=== PATIENT | male | born 1965 | race American Indian/Alaskan Native ===

== ENCOUNTER 2025-06-27 09:42 | Emergency (ER) | payer BC, SELFPAY ==
--- NOTE | 2025-06-27 | XR_ITS ---
Examination: MRI brain without intravenous contrast. Date and time of exam: June 27, 2025 1141 hrs. Indications: Onset dizziness episodes beginning 4 days ago. Technique: Multiple axial and sagittal images of the brain obtained. Siemens high-resolution 1.5 Nicole short bore scanners utilized. Sagittal sections, T1-weighted, TR 500, TE 14, are performed. Axial sections proton-density and T2-weighted have been obtained. Inversion recovery axial images, TR 9, 260, TE 111, TI 2500. Diffusion weighted images, axial sections, TR 4800, TE 128, B value 1000 Axial sections, ADC map, TR 4800, TE 128 Findings: Enlargement of the sella turcica is not present. The optic chiasm and infundibular are not remarkable. Prepontine and interpeduncular cisterns are not enlarged. There is no localized enlargement of the medulla or dania. Fourth ventricle and cerebellar tonsils appear normal in position. No subacute area of hemorrhage density is seen. Mass in the cerebellopontine angle region is not evident. Globes symmetrical. Orbital musculature including medial lateral rectus muscles do not exhibit abnormality. Diffusion-weighted images demonstrate no focus of restricted diffusion. Increased white matter signal evident, punctate foci signal right parietal white matter, FLAIR image 14, frontal white matter FLAIR image 17 Mass effect upon the ventricular system is not identified. Impression: Negative for acute hemorrhage mass effect or midline shift No acute infarct Scattered punctate foci increased signal in the white matter, consider demyelinating disease
--- NOTE | 2025-06-27 09:46 | EKG_ITS ---
[facility] Test Date: 2025-06-27 Pat Name: SOPHIE LEAHY Department: Room: - Gender: Male Endbander: : 1965 Requested By: Vazquez Flores (BONNY) Order Number: [id number] Reading MD: Vazquez Flores (HOME ORGANIZER) Measurements Intervals [place] Rate: 50 P: 48 NM: 207 QRS: 34 QRSD: 106 T: 70 QT: 411 QTc: 378 Interpretive Statements SINUS BRADYCARDIA LATERAL MYOCARDIAL INFARCTION , PROBABLY RECENT [40+ ms Q WAVE AND/OR ST/T ABNORMALITY IN I/aVL/V5/V6] ACUTE DC Compared to ECG 04/08/2020 10:42:09 No significant changes /store/S0/[id number]/ecg/[id number].pdf
--- NOTE | 2025-06-27 09:59 | XR_ITS ---
Examination: Images single view Technique : AP portable upright chest single view Date and time: June 27, 2025, 10:10 AM INDICATIONS: Chest pain shortness of breath today FINDINGS: Normal heart size. Lungs are clear. The osseous structures are intact IMPRESSION: No active disease
--- NOTE | 2025-06-27 09:59 | PD.EDRME ---
Rapid Medical Screening Exam RME Arrival date/time: 06/27/25 09:42 59-year-old male presents Emergency Department today for complaints of dizziness ongoing since Tuesday Chief Complaint: Dizziness
[2025-06-27 10:07] VITALS: BP 178/84; PULSE 53; RESP 15; TEMP 36.9; O2SAT 98
[2025-06-27 10:12] VITALS: PULSE 58
[2025-06-27 10:15] VITALS: BMI 29.8
[2025-06-27 10:28] VITALS: PULSE 58
[2025-06-27 10:53] LABS: Collection Type, Urine Clean Catch; Squamous Epithelial Cell,Urine 0 /hpf (0-5)
[2025-06-27 10:57] LABS: Bilirubin,Urine Negative (Negative); Blood,Urine Negative (Negative); Clarity,Urine Clear (Clear/Hazy); Color,Urine Colorless (Lt Yel-Yel); Glucose, Urine Negative (Negative); Ketones,Urine Negative (Negative); Leukocyte Esterase,Urine Negative (Negative); Nitrite,Urine Negative (Negative); PH,Urine 6.0 (5.0-7.0); Protein,Urine Negative (Neg - Trace); RBC,Urine 1 /hpf (0-3); Specific Gravity,Urine 1.005 (1.001-1.035); Urobilinogen,Urine Negative mg/dL (0.0-1.0); WBC,Urine 1 /hpf (0-5)
[2025-06-27 10:59] LABS: Basophils # (Auto) 0.0 Thou/mm3 (0.0-0.2); Basophils % (Auto) 0 % (0-2.5); Eosinophils # (Auto) 0.0 Thou/mm3 (0.0-0.5); Eosinophils % (Auto) 1 % (0-10); Hematocrit 47.1 % (41.0-53.0); Hemoglobin 16.6 g/dL (13.5-16.0); Immature Granulocytes Auto 0.02 Thou/mm3 (0.00-0.00); Lymphocytes # (Auto) 1.2 Thou/mm3 (1.0-4.8); Lymphocytes % (Auto) 17 % (10-50); Mean Corpuscular HGB Conc 35.2 g/dl (31.0-37.0); Mean Corpuscular Hemoglobin 30.0 pg (25.0-35.0); Mean Corpuscular Volume 85 fL (80-100); Monocytes # (Auto) 0.3 Thou/mm3 (0.0-0.8); Monocytes % (Auto) 5 % (0-12); Neutrophils # (Auto) 5.4 Thou/mm3 (1.8-7.7); Neutrophils % (Auto) 78 % (37-80); Nucleated Red Blood Cell # 0.00 Thou/mm3 (0.00-0.00); Nucleated Red Blood Cell % 0 /100 WBC (0); Platelet Count 244 Thou/mm3 (140-440); RDW Standard Deviation 38.8 fL (35.1-43.9); Red Blood Count 5.53 Miln/mm3 (4.50-5.90); White Blood Count 7.0 Thou/mm3 (3.8-10.6)
[2025-06-27 11:12] LABS: INR 1.0 (0.9-1.3); Partial Thromboplastin Time 25.9 Seconds (22.0-36.0); Prothrombin Time 11.1 Seconds (9.0-12.2)
[2025-06-27 11:15] LABS: B-Type Natriuretic Peptide 23 pg/mL (0-100)
[2025-06-27] MEDS: SODIUM CHLORIDE 0.9% 1000 ML 1,000 ML 999 ML IV (11:15)
[2025-06-27 11:16] LABS: Alanine Aminotransferase 28 U/L (10-49); Albumin, Serum 4.8 gm/dL (3.5-5.0); Albumin/Globulin Ratio 1.8 (1.2-2.2); Alkaline Phosphatase 57 U/L (46-116); Anion Gap 8 (7-16); Aspartate Amino Transferase 33 U/L (0-34); BUN/Creatinine Ratio 9 Ratio (12-20); Bilirubin,Total 0.8 mg/dL (0.3-1.2); Blood Urea Nitrogen 10 mg/dL (9-23); Calcium 10.4 mg/dL (8.3-10.6); Calcium (Corrected) 10.4 mg/dL (8.5-10.1); Carbon Dioxide 27.6 mMol/L (20.0-31.0); Chloride 105 mMol/L (98-107); Creatinine (Component) 1.1 mg/dL (0.6-1.3); Estimated Creatinine Clearance 74.4 mL/min (>60); Globulin 2.6 gm/dL (2.3-3.5); Glucose 88 mg/dL (74-106); Magnesium 2.0 mg/dL (1.6-2.6); Osmolality,Calculated 279 (275-295); Potassium 4.0 mMol/L (3.4-5.1); Sodium 141 mMol/L (136-145); Total Protein 7.4 gm/dL (5.7-8.2); Troponin I < 0.020 ng/mL (0.0-0.045); eGFR > 60 See Note
--- NOTE | 2025-06-27 12:15 | PD.EDDIZZY ---
ED Dizzyness RME/HPI General Chief Complaint: Dizziness Stated Complaint: Dizziness since Tuesday Time Seen by Provider: 06/27/25 10:14 Arrival date/time: 06/27/25 09:42 Limitations: no limitations RME / HPI RME / HPI Narrative: 06/27/25 09:42 59-year-old male presents Emergency Department today for complaints of dizziness ongoing since Tuesday complaint: dizziness Onset (ago): day(s) Timing: sudden onset Description: sense of movement History of similar episodes: Yes (Patient had dizziness similar to this in 2016) Severity: moderate Relieving factors: medication Exacerbating factors: position Associated symptoms: denies other symptoms Related Data Home Medications ?Medication ?Instructions ?Recorded ?Confirmed atenolol 50 mg tablet 50 mg PO QDAY 04/08/20 06/27/25 lisinopril 10 mg tablet 10 mg PO QDAY 06/27/25 06/27/25 meclizine 50 mg tablet (Antivert) 25 mg PO .Q12 06/27/25 06/27/25 tamsulosin 0.4 mg capsule (Flomax) 0.4 mg PO QDAY 06/27/25 06/27/25 Allergies Allergy/AdvReac Type Severity Reaction Status Date / Time No Known Allergies Allergy Verified 06/27/25 09:46 Review of Systems Review of Systems Systems Reviewed: All systems reviewed, normal except as documented Constitutional Constitutional: Reports system reviewed and no additional complaints, except as documented ENT Ears, Nose, Mouth, and Throat: Reports vertigo Neurologic Neurologic: Reports vertigo Past Medical History Past Medical History NEUROLOGIC: Negative Neurological Disorders or Seizures CARDIAC: Positive Cardiac Disorders and Hypertension (TAKES MED); Negative Congestive Heart Failure, Edema or Cellulitis RESPIRATORY: Negative Respiratory Disorders, Chronic Obstructive Pulmonary Disease (COPD), Pneumonia, Tuberculosis or Sleep Apnea GASTROINTESTINAL: Positive Gastrointestinal Disorders and Gastroesophageal Reflux Disease; Negative Hepatitis GENITOURINARY: Negative Genitourinary Disorders or Renal Disease MUSCULOSKELETAL: Negative Musculoskeletal Disorders ENDOCRINE: Negative Endocrine Disorders, Diabetes Mellitus Type 1 or Diabetes Mellitus Type 2 HEMATOLOGIC: Negative Blood Disorders OTHER HISTORY: Positive Falls (12/20 FELL LANDED ON SHOULDER FOR THIS PROC); Negative Hospitalization, Autoimmune Disease, Shingles, Blood Transfusions, Anesthesia Reactions, Chemotherapy, Radiation Therapy, MRSA, Chicken Pox, Measles, Mumps or Cancer Family History FAMILY HISTORY: Positive Family Cardiac Disorders (MOTHER (HTN)) and Family Surgery (FATHER,MOTHER); Negative Family Psychiatric Problems, Family Respiratory Disorders, Family Gastrointestinal Problems, Family Cancer or Family Anesthesia Reaction Surgical History SURGICAL: Negative Pacemaker Social History SMOKING STATUS: Never smoker ED Exam General Limitations: Present no limitations General appearance: Present alert and in no apparent distress Head Head exam: Present atraumatic Eye Eye exam: Present normal appearance, PERRL and EOMI ENT ENT exam: Present normal exam, normal oropharynx and mucous membranes moist Neck Neck exam: Present normal inspection, full ROM and trachea midline Chest Chest inspection: Present normal inspection and symmetric chest wall rise Respiratory Respiratory exam: Present normal lung sounds bilaterally Cardiovascular Cardiovascular exam: Present regular rate, normal rhythm and normal heart sounds Abdominal Exam Abdominal exam: Present soft and normal bowel sounds Extremities Exam Extremities exam: Present normal inspection and full ROM Back Exam Back exam: Present normal inspection and full ROM Neurological Exam Neurological exam: Present alert, oriented X3 and CN II-XII intact Psychiatric Psychiatric exam: Present normal affect and normal mood Skin Skin exam: Present warm, dry, intact and normal color Course Quality Measures none Orders Category Date Time Status Tree Specialist NOW Care 06/27/25 09:59 Completed Tree Specialist NOW Care 06/27/25 10:22 Completed Continuous Pulse Oximetry NOW Care 06/27/25 10:22 Completed EKG (ED ONLY) *Do not use* NOW Care 06/27/25 09:46 Completed Insert IV NOW Care 06/27/25 10:22 Completed MRI Screening NOW Care 06/27/25 10:22 Completed MRI Screening NOW Care 06/27/25 10:23 Completed EKG (ED Only) Stat Exams 06/27/25 09:46 Draft MR head/brain wo con Stat Exams 06/27/25 Completed XR chest 1V portable Stat Exams 06/27/25 09:59 Completed B-Type Natriuretic Peptide Stat Lab 06/27/25 10:43 Completed CBC Stat Lab 06/27/25 10:43 Completed Comprehensive Metabolic Panel Stat Lab 06/27/25 10:43 Completed Magnesium Stat Lab 06/27/25 10:43 Completed Partial Thromboplastin Time Stat Lab 06/27/25 10:43 Completed Prothrombin Time with INR Stat Lab 06/27/25 10:43 Completed Troponin I Stat Lab 06/27/25 10:43 Completed Urinalysis Stat Lab 06/27/25 10:45 Completed Sodium Chloride 0.9% 1000 ml [Ns] 1,000 ml Med 06/27/25 10:22 Discontinued IV 999 mls/hr Vital Signs Vital signs: Vital Signs Temperature 98.4 F 06/27/25 10:07 Pulse Rate 53 L 06/27/25 10:07 Respiratory Rate 15 06/27/25 10:07 Blood Pressure 178/84 H 06/27/25 10:07 Pulse Oximetry (%) 98 06/27/25 10:07 Oxygen Delivery Method Room Air 06/27/25 10:07 Pulse ox is 98% on room air which is adequate. Dizziness MDM Narrative MDM Narrative:: Patient is a 59-year-old male whose had dizziness for 3 days and who has been treated with meclizine with some improvement. He has cerumen in his right external canal greater than the left external canal. He has no nystagmus. His neuroexam is normal. Blood pressure initially was 178/84. Patient data External records reviewed:: [facility] previous records (I reviewed H&P on 07/28/2020 ) Clinical information provided by:: patient Social determinants that could affect healthcare access:: none Patient has the following chronic illnesses:: Hypertension, BPH How is presenting disease/condition affected by chronic disease/condition?: exacerbated by Evaluation data The following diagnostics were reviewed and interpreted by me:: lab results, radiology exam(s) and EKG tracing(s) (06/27/2025. Sinus bradycardia, rate 53, no acute STEMI ) Lab and/or radiology exams considered but not ordered:: None Interpretation Summary: Ordering Physician: Rickie Reich MD Date of Service: 06/27/25 Procedure(s): MR head/brain wo [facility] Accession Number(s): [id number] cc: Rickie Reich MD; Raheel Clemente MD; Gricel Dinh NP~ Examination: MRI brain without intravenous contrast. Date and time of exam: June 27, 2025 1141 hrs. Indications: Onset dizziness episodes beginning 4 days ago. Technique: Multiple axial and sagittal images of the brain obtained. Siemens high-resolution 1.5 Nicole short bore scanners utilized. Sagittal sections, T1-weighted, TR 500, TE 14, are performed. Axial sections proton-density and T2-weighted have been obtained. Inversion recovery axial images, TR 9, 260, TE 111, TI 2500. Diffusion weighted images, axial sections, TR 4800, TE 128, B value 1000 Axial sections, ADC map, TR 4800, TE 128 Findings: Enlargement of the sella turcica is not present. The optic chiasm and infundibular are not remarkable. Prepontine and interpeduncular cisterns are not enlarged. There is no localized enlargement of the medulla or dania. Fourth ventricle and cerebellar tonsils appear normal in position. No subacute area of hemorrhage density is seen. Mass in the cerebellopontine angle region is not evident. Globes symmetrical. Orbital musculature including medial lateral rectus muscles do not exhibit abnormality. Diffusion-weighted images demonstrate no focus of restricted diffusion. Increased white matter signal evident, punctate foci signal right parietal white matter, FLAIR image 14, frontal white matter FLAIR image 17 Mass effect upon the ventricular system is not identified. Impression: Negative for acute hemorrhage mass effect or midline shift No acute infarct Scattered punctate foci increased signal in the white matter, consider demyelinating disease Dictated By: Raheel Clemente MD Signed By: <Electronically signed by Raheel Clemente MD in OV> 06/27/25 1223 Ordering Physician: Mark WRIGHT)Vazquez NP Date of Service: 06/27/25 Procedure(s): XR chest 1V portable Accession Number(s): [id number] cc: Mark WRIGHT)Vazquez NP; Raheel Clemente MD~ Examination: Images single view Technique : AP portable upright chest single view Date and time: June 27, 2025, 10:10 AM INDICATIONS: Chest pain shortness of breath today FINDINGS: Normal heart size. Lungs are clear. The osseous structures are intact IMPRESSION: No active disease Dictated By: Raheel Clemente MD Signed By: <Electronically signed by Raheel Clemente MD in OV> 06/27/25 1040 Medications / Prescriptions Medications or Prescriptions considered but not ordered:: None Medication administrations:: Medication Administration History Discontinued Medications Sodium Chloride (Ns) 1,000 mls @ 999 mls/hr IV .Q1H1M ONE Stop: 06/27/25 11:22 Last Infusion: 06/27/25 12:50 Dose: Infused Documented By: Admin: 06/27/25 11:15 Dose: 999 mls/hr Documented By: DANILO See above Consultations Consultation(s) initiated? (list below): No Diagnosis Dizziness Differential Diagnosis: benign paroxysmal positional vertigo Most likely diagnosis given after review of the tests above:: BPH Excessive cerumen in right ear Admission Indicated Admission indicated?: not indicated Admission Request Was there a request for admission?: No Disposition Plan Disposition Plan: Discharge Discharge Attestation Discharge Attestation: The patient and all family members were given an opportunity to ask questions and understood the discharge instructions. Discharge instructions specifically effects, indications for sooner follow up or return to the emergency department, and the expected course of current diagnosis. Patient condition: Stable Discharge Plan Plan Patient Disposition: HOME (Self Care) Prescriptions/Referrals Prescriptions/Med Rec: No Action atenolol 50 mg Tablet 50 mg PO QDAY lisinopril 10 mg tablet 10 mg PO QDAY tamsulosin [Flomax] 0.4 mg capsule 0.4 mg PO QDAY meclizine [Antivert] 50 mg tablet 25 mg PO .Q12 Referrals: Gricel Dinh, [employer] [Primary Care Provider] - In 1 week Problem List Clinical Impression: Benign paroxysmal positional vertigo, Excessive cerumen in right ear canal Patient/Caregiver Discharge Instructions Education Materials: ED BPV Vertigo Additional Instructions: Follow-up with your primary medical doctor in 1 day. Your ears need cleaning with wax in the right greater than the left. Use Debrox in order to soften the wax as directed. Please also get a referral to a neurologist due to your MRI findings today. There was concern for demyelinating disease. Please also look up on the Internet Seamus's maneuver and try this at home and it may help with your dizziness. Print Language: Mauritanian Stand Alone Forms: [employer] Award Info., Patient Portal Info Letter
[2025-06-27 12:43] VITALS: BP 158/89; PULSE 49; RESP 15; TEMP 36.4; O2SAT 100
[2025-06-27 13:02] VITALS: BP 158/89; PULSE 49; RESP 16; TEMP 36.4; O2SAT 100
== END 2025-06-27 13:00 | disposition home or self-care (01) ==
PROVIDERS: Nurse Practitioner Primary Care; Emergency Provider Family Medicine; PCP Nurse Practitioner Family
DX: H81.10 Benign paroxysmal vertigo, unspecified ear (principal); H61.21 Impacted cerumen, right ear; I10 Essential (primary) hypertension; R90.82 White matter disease, unspecified; R07.9 Chest pain, unspecified; R06.02 Shortness of breath; R00.1 Bradycardia, unspecified
CPT/HCPCS: 36415; 70551; 71045; 80053; 81001; 83735; 83880; 84484; 85025; 85610; 85730; 93005; 96360; 96361; 99284; J7030

== ENCOUNTER → 2025-07-04 | Outpatient (BNVA) | payer BC, SELFPAY | END | disposition home or self-care (01) | PROVIDERS: PCP Student in an Organized Health Care Education/Training Program; Referring Provider Student in an Organized Health Care Education/Training Program; Visit Provider Urology | DX: N40.1 Benign prostatic hyperplasia with lower urinary tract symptoms (principal); N13.8 Other obstructive and reflux uropathy; E66.9 Obesity, unspecified; Z68.30 Body mass index [BMI] 30.0-30.9, adult; I10 Essential (primary) hypertension; K21.9 Gastro-esophageal reflux disease without esophagitis | CPT/HCPCS: 81003; 99212; G0463 ==

== ENCOUNTER → 2025-07-22 | Outpatient (CLI) | payer BC, SELFPAY ==
--- NOTE | 2025-07-22 13:30 | XR_ITS ---
Examination: Carotid arterial duplex scan, ultrasound. Date and time of exam: July 22, 2025 1334 hours INDICATIONS: Severe dizziness episodes lasting 5 days beginning last month Technique: Multiple sonographic images have been obtained of the carotid arteries and vertebral arteries, B-mode/grayscale imaging and Doppler spectral analysis and color flow Peak systolic and diastolic velocities have been recorded. Systolic diastolic ratios have been calculated. Findings: Right peak systolic velocities: Distal internal carotid artery peak systolic velocity is 0.7 M/sec Proximal internal carotid artery peak systolic velocity is 1.0 M/sec Carotid bifurcation peak systolic velocity is 0.6 M/sec External carotid artery peak systolic velocity is 0.7 M/sec Vertebral artery flow is antegrade. Left peak systolic velocities: Distal internal carotid artery peak systolic velocity is 1.0 M/sec Proximal internal carotid artery peak systolic velocity is 0.9 M/sec Carotid bifurcation peak systolic velocity is 0.3 M/sec External carotid artery peak systolic velocity is 1.2 M/sec Vertebral artery flow is antegrade Doppler waveform analysis demonstrates spectral broadening on the left Impression: Right internal carotid artery demonstrates 0-10% stenosis. Left internal carotid artery demonstrates 10-40% stenosis.
== END | disposition home or self-care (01) ==
LOC: CDIM 13:17
PROVIDERS: PCP Internal Medicine; Referring Provider Internal Medicine; Visit Provider Internal Medicine
DX: I65.22 Occlusion and stenosis of left carotid artery (principal)
CPT/HCPCS: 93880

== ENCOUNTER → 2025-07-25 | Outpatient (BNVA) | payer BC, SELFPAY | END | disposition home or self-care (01) | PROVIDERS: PCP Student in an Organized Health Care Education/Training Program; Referring Provider Student in an Organized Health Care Education/Training Program; Visit Provider Urology | DX: N40.1 Benign prostatic hyperplasia with lower urinary tract symptoms (principal); R39.12 Poor urinary stream; I10 Essential (primary) hypertension; K21.9 Gastro-esophageal reflux disease without esophagitis | CPT/HCPCS: 51741; 51798 ==

== ENCOUNTER → 2025-08-05 | Outpatient (BNVA) | payer BC, SELFPAY | END | disposition home or self-care (01) | PROVIDERS: PCP Student in an Organized Health Care Education/Training Program; Referring Provider Student in an Organized Health Care Education/Training Program; Visit Provider Urology | DX: C61 Malignant neoplasm of prostate (principal); N40.1 Benign prostatic hyperplasia with lower urinary tract symptoms; N13.8 Other obstructive and reflux uropathy; I10 Essential (primary) hypertension; K21.9 Gastro-esophageal reflux disease without esophagitis | CPT/HCPCS: 55700; 76942; 81003; 96372; A4649; J1580; J3490; A9270 ==

== ENCOUNTER → 2025-08-19 | Outpatient (BNVA) | payer BC, SELFPAY | END | disposition home or self-care (01) | PROVIDERS: PCP Student in an Organized Health Care Education/Training Program; Referring Provider Student in an Organized Health Care Education/Training Program; Visit Provider Urology | DX: C61 Malignant neoplasm of prostate (principal); I10 Essential (primary) hypertension | CPT/HCPCS: 81003; 99212; G0463 ==

== ENCOUNTER → 2025-09-16 | Outpatient (CLI) | payer BC, SELFPAY ==
[2025-09-16 09:53] LABS: Anion Gap 7 (7-16); BUN/Creatinine Ratio 11 Ratio (12-20); Blood Urea Nitrogen 13 mg/dL (9-23); Calcium 9.9 mg/dL (8.3-10.6); Carbon Dioxide 27.6 mMol/L (20.0-31.0); Chloride 105 mMol/L (98-107); Creatinine (Component) 1.2 mg/dL (0.6-1.3); Glucose 102 mg/dL (74-106); Osmolality,Calculated 279 (275-295); Potassium 4.2 mMol/L (3.4-5.1); Sodium 140 mMol/L (136-145); eGFR > 60 See Note
== END | disposition home or self-care (01) ==
PROVIDERS: PCP Student in an Organized Health Care Education/Training Program; Referring Provider Urology; Visit Provider Urology
DX: C61 Malignant neoplasm of prostate (principal)
CPT/HCPCS: 36415; 80048

== ENCOUNTER → 2025-09-20 | Outpatient (BNVA) | payer BC, SELFPAY | END | disposition home or self-care (01) | PROVIDERS: PCP Student in an Organized Health Care Education/Training Program; Referring Provider Student in an Organized Health Care Education/Training Program; Visit Provider Urology | DX: C61 Malignant neoplasm of prostate (principal) | CPT/HCPCS: 99212; G0463 ==

== ENCOUNTER → 2025-10-08 | Outpatient (BNVA) | payer BC, SELFPAY | END | disposition home or self-care (01) | PROVIDERS: PCP Student in an Organized Health Care Education/Training Program; Referring Provider Student in an Organized Health Care Education/Training Program; Visit Provider Urology | DX: N32.89 Other specified disorders of bladder (principal); N40.1 Benign prostatic hyperplasia with lower urinary tract symptoms; N13.8 Other obstructive and reflux uropathy; C61 Malignant neoplasm of prostate; I10 Essential (primary) hypertension | CPT/HCPCS: 52000; 81003; 96372; A4217; A4649; C1894; J1580; A9270 ==